=== PATIENT | female | born 1955 | race Caucasian/White ===

== ENCOUNTER 2019-02-05 01:32 | Emergency (ER) | payer OTHER ==
--- NOTE | 2019-02-05 02:10 | EDPHY ---
H & P Stated Complaint: fall, hit head @2100, denies LOC Time Seen by Provider: 02/05/19 01:46 HPI/ROS: HPI: The patient presents with a fall which occurred at about 9:00 p.m. Tonight. She was walking to her door in the dark and tripped on a flag stone on the path, falling forward, hitting her head on rocks. She did not lose consciousness, she did develop a frontal hematoma. She reports some blurring of vision from her right eye. She has not had any vomiting. She does take aspirin 81 mg daily as she is status post aortic valve replacement 1 year ago. REVIEW OF SYSTEMS 10 systems were reviewed and negative with the exception of the elements mentioned in the history of present illness. PMHx: Aortic valve replacement, anxiety and depression, lives alone TRAUMA PHYSICAL General Appearance: Alert, no distress Head: Right forehead with large abrasion and hematoma present Eyes: Pupils equal, round, reactive ENT, Mouth: No hemotypanium, no oral trauma Neck: Non- tender, trachea midline Respiratory: Breathing comfortably Skin: No lacerations, No abrasion Back: No midline T/L/S pain Extremities: Non-tender, full range of motion Neurological: A&Ox3, GCS=15,normal motor function with 5/5 strength in all 4 extremities, normal sensory exam Source: Patient Exam Limitations: No limitations - Personal History Current Tetanus/Diphtheria Vaccine: Yes - Medical/Surgical History Hx Asthma: No Hx Chronic Respiratory Disease: No Hx Diabetes: No Hx Cardiac Disease: No Hx Renal Disease: No Hx Cirrhosis: No Hx Alcoholism: No Hx HIV/AIDS: No Hx Splenectomy or Spleen Trauma: No Other PMH: depression, anxiety, , aortic valve replacement 11/2017, - Social History Smoking Status: Never smoked Constitutional: Initial Vital Signs Temperature (C) 36.9 C 02/05/19 01:33 Heart Rate 82 02/05/19 01:33 Respiratory Rate 16 02/05/19 01:33 Blood Pressure 115/75 02/05/19 01:33 O2 Sat (%) 95 02/05/19 01:33 O2 Delivery Mode Room Air Allergies/Adverse Reactions: Sulfa (Sulfonamide Antibiotics) Allergy (Verified 02/22/15 01:49) Home Medications: Medication Instructions Recorded Lamictal 02/22/15 Prozac 02/22/15 Aspirin 02/05/19 Atorvastatin Calcium 02/05/19 BUPRENORPHINE HCL 02/05/19 Donepezil HCl 02/05/19 Medical Decision Making - Diagnostics Imaging Results: CT head without contrast is unremarkable, interpreted by direct Radiology. Differential Diagnosis: 63-year-old female on baby aspirin daily presents with fall from standing, tripping on rocks in the dark, landing on her head and sustaining right-sided forehead hematoma which is quite extensive. She does have blurry vision of her right eye. Her neurologic exam is otherwise normal, she does not have vomiting. Given her blurry vision and hematoma, I will perform CT scan of head. CT scan is unremarkable. Suspect concussion. I have discussed with the patient and will discharge her home. Departure - Departure Disposition: Home, Routine, Self-Care Clinical Impression: Fall from standing Qualifiers: Encounter type: initial encounter Qualified Code(s): W19.XXXA - Unspecified fall, initial encounter Head injury Qualifiers: Encounter type: initial encounter Qualified Code(s): S09.90XA - Unspecified injury of head, initial encounter Hematoma of frontal scalp Qualifiers: Encounter type: initial encounter Qualified Code(s): S00.03XA - Contusion of scalp, initial encounter Condition: Good Instructions: Head Injury (ED) Additional Instructions: I recommend you take Tylenol as needed if you have a headache. You can use an ice pack for the swelling of your forehead. Referrals: Morenita Tavares MD [Primary Care Provider] - As per Instructions
[2019-02-05 03:16] VITALS: BP 116/76
== END 2019-02-05 03:15 | disposition home or self-care (01) ==
DX: S00.03XA Contusion of scalp, initial encounter (principal); W01.198A Fall on same level from slipping, tripping and stumbling with subsequent striking against other object, initial encounter; Y92.480 Sidewalk as the place of occurrence of the external cause; Y92.007 Garden or yard of unspecified non-institutional (private) residence as the place of occurrence of the external cause